=== PATIENT | female | born 1990 | race Hispanic/Latino ===

== ENCOUNTER 2022-02-20 21:04 | Emergency (ER) | payer MEDICAID ==
[~2022-02-20] VITALS: Ht 149.9 cm; Wt 51.7 kg
[2022-02-20] MEDS ORDERED: FAMO-136 PO (21:26)
[2022-02-20] MEDS ORDERED: PRED20TA3 PO (21:26)
[2022-02-20] MEDS ORDERED: CETI1SOL17 PO (21:26)
[2022-02-20 21:27] VITALS: BP 117/55
[2022-02-20] MEDS ORDERED: FAMOTIDINE 20MG TAB PO ONE (21:30)
[2022-02-20] MEDS ORDERED: DIPHENHYDRAMINE HCL 25 MG CAPSULE PO ONE (21:30)
[2022-02-20] MEDS ORDERED: SOLU-MEDROL 125MG VIAL IM ONE (21:30)
== END 2022-02-20 21:45 | disposition home or self-care (01) ==
LOC: EDH 21:04
DX: L50.9 Urticaria, unspecified (principal); Z79.52 Long term (current) use of systemic steroids
CPT/HCPCS: 96372; 99283; J2930; Q0163